=== PATIENT | female | born 1965 | race Caucasian/White ===

== ENCOUNTER 2018-10-12 08:50 | Emergency (ER) | payer OTHER ==
[2018-10-12 09:25] VITALS: BP 153/91
--- NOTE | 2018-10-12 10:30 | ED ---
Upper Extremity Pain - HPI Summary HPI Summary: 52 yr old female with the complaint of left wrist, forearm and elbow pain. Onset over the past week. She states it is worse with carrying her computer at work. Her pain is mostly over the median nerve carpal tunnel area of the left volar wrist, and radiates up the forearm. She denies weakness and numbness. - History of Current Complaint Chief Complaint: UCUpperExtremity Stated Complaint: WC-LT WRIST ELBOW PAIN Time Seen by Provider: 10/12/18 09:39 Hx Last Menstrual Period: 1 yr+ - Allergies/Home Medications Allergies/Adverse Reactions: Allergies Allergy/AdvReac Type Severity Reaction Status Date / Time cephalexin [From Keflex] Allergy Hives/Diff. Verified 10/12/18 09:25 Breathing/I tching metformin Allergy Nausea And Verified 10/12/18 09:25 Vomiting Home Medications: Home Medications NK [No Home Medications Reported] 10/12/18 [History Confirmed 10/12/18] PMH/Surg Hx/FS Hx/Imm Hx Respiratory History: Reports: Hx Asthma, Hx Chronic Obstructive Pulmonary Disease (COPD), Hx Pneumonia - Surgical History Surgery Procedure, Year, and Place: surgery to left wrist / carpal tunnel 1998. c section 1989 Infectious Disease History: No Infectious Disease History: Denies: Traveled Outside the [place] in Last 30 Days - Family History Known Family History: Positive: Cardiac Disease, Hypertension, Diabetes - Social History Occupation: Employed Full-time Alcohol Use: Occasionally Substance Use Type: Reports: None Smoking Status (MU): Heavy Every Day Tobacco Smoker Type: Cigarettes Amount Used/How Often: 1 ppd Length of Time of Smoking/Using Tobacco: 40 years Review of Systems Constitutional: Negative Positive: Other - left wrist, forearm pain All Other Systems Reviewed And Are Negative: Yes Physical Exam Triage Information Reviewed: Yes Vital Signs On Initial Exam: Initial Vitals Temp Pulse Resp BP Pulse Ox 97.7 F 74 16 153/91 99 10/12/18 09:19 10/12/18 09:19 10/12/18 09:19 10/12/18 09:10/12/18 09:19 Vital Signs Reviewed: Yes Appearance: Positive: Well-Appearing, No Pain Distress Skin: Positive: Warm, Skin Color Reflects Adequate Perfusion Head/Face: Positive: Normal Head/Face Inspection Eyes: Positive: EOMI, SOFIA Neck: Positive: Nontender Respiratory/Lung Sounds: Positive: Clear to Auscultation, Breath Sounds Present Cardiovascular: Positive: RRR, Pulses are Symmetrical in both Upper and Lower Extremities Abdomen Description: Negative: Distended Musculoskeletal: Positive: Other - Positive phalen and positive tinnel test. No gross deformity to the left wrist, hand forearm or elbow. No effusion, no redness, no increased warmth. She has a scar over the left snuff box and distally from prior surgery years ago. Neurological: Positive: Sensory/Motor Intact, Alert, Oriented to Person Place, Time, CN Intact II-III Psychiatric: Positive: Normal - Harley Coma Scale Best Eye Response: 4 - Spontaneous Best Motor Response: 6 - Obeys Commands Best Verbal Response: 5 - Oriented Coma Scale Total: 15 Diagnostics - Vital Signs Vital Signs Temp Pulse Resp BP Pulse Ox 10/12/18 09:19 97.7 F 74 16 153/91 99 - Laboratory Lab Statement: Any lab studies that have been ordered have been reviewed, and results considered in the medical decision making process. Course/Dx - Course Course Of Treatment: 52 with carpal tunnel syndrome. DC home. FU with ortho. wrist splint ordered. - Diagnoses Provider Diagnoses: Carpal tunnel syndrome of left wrist, Hypertension Discharge - Sign-Out/Discharge Documenting (check all that apply): Patient Departure All imaging exams completed and their final reports reviewed: Yes - Discharge Plan Condition: Good Disposition: HOME Patient Education Materials: Wrist Injury (ED), Carpal Tunnel Surgery (DC), Hypertension (ED) Referrals: JW Sosa [Primary Care Provider] - Judith Bland MD [Medical Doctor] - 5 Days - Billing Disposition and Condition Condition: GOOD Disposition: Home
== END 2018-10-12 10:43 | disposition home or self-care (01) ==
LOC: UCCORT 08:50
DX: G56.02 Carpal tunnel syndrome, left upper limb (principal); I10 Essential (primary) hypertension; F17.210 Nicotine dependence, cigarettes, uncomplicated
CPT/HCPCS: 99211; G0463